=== PATIENT | male | born 2000 | race Caucasian/White ===

== ENCOUNTER → 2022-02-18 | Outpatient (CLI) | payer MEDICAID, SELFPAY ==
--- NOTE | 2022-02-18 17:33 | RAD_ITS ---
STUDY: ACUTE ABDOMEN X-RAY SERIES WITH PA CHEST 1736 HOURS ON 02/18/2022 REASON FOR EXAM: 21-year-old male with abdominal pain. TECHNIQUE: Single view of the chest. Supine, 3 view(s) of the abdomen were obtained. COMPARISON: None. FINDINGS: AP chest x-ray, the osseous structures are normal. There is no cardiomegaly. There are no pulmonary infiltrates, atelectasis, effusion, pulmonary mass lesions. There is no pneumonia, pneumonitis, or bronchitis. Examination abdomen series, there is mild lumbar levoscoliosis. There is no abdominal cardiomegaly. There are a few loops of central dilated small intestine that may represent a sentinel small intestinal ileus. There is a mild amount of fecal material in the descending colon. Otherwise, the intestinal gas pattern is unremarkable. There is no abnormal intra-abdominal calcifications or collections of air. There is no evidence of free subdiaphragmatic air. RAD/Acute Abdomen Inc Chest IMPRESSION: 1. Findings and may represent a central small intestinal ileus. 2. Mild amount of fecal material in the descending colon with an otherwise unremarkable colonic intestinal gas pattern. 3. No abnormal intra-abdominal calcifications or collections of air. 4. No free intra-abdominal air. 5. No organomegaly. 6. No active cardiopulmonary disease. Electronically Signed: Leonard Lancaster MD at 17:55 EDT ,
== END | disposition home or self-care (01) ==
LOC: MTRAD 17:26
PROVIDERS: PCP Family Medicine; Referring Provider Family Medicine; Visit Provider Family Medicine
DX: R10.9 Unspecified abdominal pain (principal)
CPT/HCPCS: 74022

== ENCOUNTER → 2023-09-13 | Outpatient (CLI) | payer MEDICAID, SELFPAY ==
[2023-09-13 17:48] LABS: Hematocrit 40.3 % (40-54); Mean Corp Hgb Conc 34.7 g/dL (32-36); Mean Corpuscular Hgb 30.1 pg (27.0-32.0); Mean Corpuscular Volume 86.7 fL (80-94); Mean Platelet Vol. 11.5 fl (6.2-12.0); Platelet Count 236 K/mm3 (150-450); RBC Distribution Width SD 38.1 fl (35.1-43.9); Red Blood Count 4.65 M/mm3 (4.6-6.2); White Blood Count 6.4 K/mm3 (4.4-11.0)
[2023-09-13 18:30] LABS: ALB/GLOB Ratio 1.2 RATIO (0.9-2.4); AST(SGOT) 29 U/L (15-37); Alanine Aminotransfer ALT/SGPT 29 U/L (16-61); Albumin, Serum 4.1 g/dL (3.2-5.0); Alkaline Phosphatase 66 U/L (45-117); Anion Gap 6 (5-15); BUN 12 mg/dL (7-18); BUN/Creat Ratio 11.5 RATIO (10-20); Calcium,Total 8.8 mg/dL (8.5-10.1); Chloride 106 mmol/L (98-107); Cholesterol 143 mg/dL (200); Creatinine, Serum 1.04 mg/dL (0.70-1.30); EST Glomerular Filtration Rate 92 mL/min (>60); Est Glom Filt Rate - Afr Amer 112 mL/min (>60); Globulin 3.4 g/dL (2.2-4.2); Glucose 94 mg/dL (74-106); High Density Lipoprotein 32 mg/dL; Protein, Total 7.5 g/dL (6.4-8.2); Sodium Level 138 mmol/L (136-145); Thyroid Stim Hormone (TSH) 1.78 uIU/mL (0.358-3.74); Triglycerides 169 mg/dL; Very Low Density Lipoprotein 34 mg/dL (5-40)
== END | disposition home or self-care (01) ==
LOC: MFPLAB 15:53
PROVIDERS: PCP Family Medicine; Visit Provider Family Medicine
DX: R07.9 Chest pain, unspecified (principal); F32.A Depression, unspecified; F84.0 Autistic disorder
CPT/HCPCS: 36415; 80053; 80061; 84443; 85027

== ENCOUNTER → 2024-05-15 | Outpatient (CLI) | payer MEDICAID, SELFPAY ==
--- NOTE | 2024-05-15 11:04 | RAD_ITS ---
STUDY: X-RAY CHEST REASON FOR EXAM: Male, 24 years old. bronchitis TECHNIQUE: PA and lateral views of the chest. COMPARISON: 02/18/2022 FINDINGS: The lungs are clear and expanded. There is no demonstrated pleural abnormality. Normal size heart. Normal mediastinum and justin. Normal visualized pulmonary arteries. Normal visualized aortic arch and descending thoracic aorta. Normal visualized thoracic spine. Normal visualized ribs, clavicles, and shoulders. There is no demonstrated abnormality of the visualized soft tissue structures of the upper abdomen. RAD/Chest PA and Lateral IMPRESSION: Normal x-ray examination of the chest. Electronically Signed: Tulio Erazo MD at 11:57 EST ,
== END | disposition home or self-care (01) ==
LOC: MTRAD 11:04
PROVIDERS: PCP Family Medicine; Referring Provider Family Medicine; Visit Provider Family Medicine
DX: J20.9 Acute bronchitis, unspecified (principal)
CPT/HCPCS: 71046